=== PATIENT | female | born 1960 | race Caucasian/White ===

== ENCOUNTER 2021-11-05 10:35 | Day surgery (SDC) | payer BC ==
[2021-10-30 12:19] VITALS: BMI 25.7
--- NOTE | 2021-11-04 11:24 | HP ---
HISTORY AND PHYSICAL REASON FOR ADMISSION: Surgery scheduled for 11/05/2021 HISTORY OF PRESENT ILLNESS: Juanita Bose is a 61 -year-old patient seen with symptomatic left knee osteoarthritis. After having treatment options discussed, she elected to proceed with left total knee arthroplasty. Consent was obtained. Medical clearance was provided by Dr. Mattson. PAST MEDICAL HISTORY: Hypothyroidism. PAST SURGICAL HISTORY: Carpal tunnel release, hysterectomy, tubal ligation. MEDICATIONS: Synthroid. ALLERGIES: None. SOCIAL HISTORY: Smokes cigarettes. PHYSICAL EXAMINATION: Physical evaluation of the left knee: Range of motion is -2/3-125. She has tenderness along the medial joint line. Crepitus medial patellofemoral compartments with range of motion. Pain with patellofemoral compression. Ligaments stable. Hip rotation without pain. Distal neurovascular exam is intact. RADIOGRAPHS: Left knee radiographs reveal severe osteoarthritic changes. IMPRESSION: 1. Left knee osteoarthritis. 2. Hypothyroidism. PLAN: Left total knee arthroplasty. Surgery is scheduled 11/05/2021. MMODL / IJN: [id number] /
[~2021-11-05 10:35] MED LIST: ACETAMINOPHEN TAB 500 MG TAB PO PRN; DEXAMETHASONE SOD PHOSPHATE 4 MG/ML 1 ML VIAL IV ONE; MELOXICAM 7.5 MG TAB PO PRN; METOCLOPRAMIDE 5 MG/ML 2 ML VIAL IVP PRN; ONDANSETRON 4 MG/2 ML VIAL IVP ONE; TRANEXAMIC ACID 1,000 MG in SODIUM CHLORIDE 0.9% 100 ML IVPB PRN
[2021-11-05] MEDS ORDERED: SCOPOLAMINE 1.5MG/72HR PATCH TRANSDERM ONE ×2 (11:10→15:05)
[2021-11-05] MEDS: LACTATED RINGERS 1,000 ML IV SCH ×2 (11:12→17:42)
[2021-11-05 11:22] LABS: Glucose,Whole Blood 100 mg/dL (75-99)
[2021-11-05] MEDS ORDERED: MIDAZOLAM 2 MG/2 ML VIAL IV ONE (11:34)
[2021-11-05] MEDS ORDERED: ROPIVACAINE 0.2%-NS ON-Q PUMP 1,090 MG, EMPTY PAIN BALL 1 EACH MISCELLANE PRN (12:24)
--- NOTE | 2021-11-05 12:24 | P.ANPRN ---
Procedure Note - Anesthesia - Nerve Block Performed Left Adductor Canal Infusion Time Out Performed: Yes (1133) Date of Procedure: 11/05/21 Procedure Start Time: 11:33 Procedure Stop Time: 11:41 Location of Patient: PreOp Indication: Acute Post-Operative Pain, Dx/Pain Location (Left Knee pain) Specifically requested for management of pain by Dr.: Talat Monique Sedation Type: Sedate with meaningful contact maintained Preparation: Sterile Prep, Sterile Dressing Position: Supine Catheter: Indwelling Needle Types: Pajunk Needle Gauge: 18 Ultrasound used to visualize needle placement: Yes Ultrasound used to observe medication spread: Yes Injectate: 0.5% Ropivacaine (see comment for volume) (15 cc) Blood Aspirated: No Pain Paresthesia on Injection Noted: No Resistance on Injection: Normal Image Stored and Saved: Yes Events: Uneventful and Well Tolerated Left iPack Single Time Out Performed: Yes Date of Procedure: 11/05/21 Location of Patient: PreOp Indication: Acute Post-Operative Pain, Dx/Pain Location (Left Knee pain) Specifically requested for management of pain by Dr.: Talat Monique Sedation Type: Sedate with meaningful contact maintained Preparation: Sterile Prep Position: Right Lateral Catheter: None Needle Types: Pajunk Needle Gauge: 21 Ultrasound used to visualize needle placement: Yes Ultrasound used to observe medication spread: Yes Injectate: 0.5% Ropivacaine (see comment for volume) (15 cc) Blood Aspirated: No Pain Paresthesia on Injection Noted: No Resistance on Injection: Normal Image Stored and Saved: Yes Events: Uneventful and Well Tolerated
[2021-11-05] MEDS ORDERED: ceFAZolin 3,000 MG in SODIUM CHLORIDE 0.9% IRRIGATIO 3,000 ML IRRIGATION ONE (12:53)
[2021-11-05] MEDS ORDERED: LACTATED RINGERS 1,000 ML IV ONE ×2 (13:54→13:57)
[2021-11-05] MEDS ORDERED: HYDROmorphone 0.2 MG/1 ML SYRINGE IVP PRN (13:57)
[2021-11-05] MEDS ORDERED: HYDROmorphone 1 MG/ML 1 ML SYRINGE IVP PRN ×2 (13:57)
[2021-11-05] MEDS ORDERED: ONDANSETRON 4 MG/2 ML VIAL IVP PRN (13:57)
[2021-11-05] MEDS ORDERED: NALOXONE 0.4 MG/ML 1 ML VIAL IV PRN ×2 (13:57→16:23)
[2021-11-05] MEDS ORDERED: HYDROcodone/APAP 5-325MG 1 EACH TAB PO PRN ×2 (13:57)
--- NOTE | 2021-11-05 13:57 | P.OP ---
Date of Procedure: 11/05/21 Preoperative Diagnosis: Left knee osteoarthritis Postoperative Diagnosis: Left knee osteoarthritis Procedure(s) Performed: Left total knee arthroplasty Implants: 1. Depuy attune size 5 narrow left cruciate retaining cemented femur 2. Depuy attune size 5 fixed bearing cemented tibial baseplate 3. Depuy attune size 5 fixed bearing cruciate retaining 5 mm polyethylene tibial insert 4. Depuy attune 35 mm all polyethylene cemented patella Anesthesia: GETA, regional (Adductor canal catheter, Ipack block) Surgeon: Talat Monique Cherry Pitter #1: Ankit Corrigan Estimated Blood Loss (ml): 45 Pathology: other (Bone) Condition: stable Disposition: PACU Indications for Procedure: 61-year-old patient seen with symptomatic left knee osteoarthritis. After having treatment options discussed, she elected to proceed with total knee arthroplasty. Operative Findings: See description of procedure Description of Procedure: Patient was taken to the operative suite after having an adductor canal catheter placed by the department of anesthesia as well as an Ipack Block for postoperative pain management. Patient underwent a general anesthetic by the department of anesthesia. Patient was given preoperative IV intake antibiotics and TXA. A well-padded tourniquet was placed about the left lower extremity. The lower extremity was then prepped and draped in the normal sterile orthopedic fashion. The extremity was elevated, a tourniquet was insufflated to 300. A standard anterior incision was made sharply through skin. Dissection was taken down through the subcutaneous soft tissues down to the extensor mechanism. A medial arthrotomy was performed, patella was everted and knee was flexed. There was advanced osteoarthritis noted. I introduced my distal intramedullary femoral drill. I then introduced the distal femoral cutting jig. Charli BROWN secured the cutting jig with 2 pins. I held retractors in position while Charli BROWN performed the distal femoral resection through the guide area we now removed her distal femoral cutting guide. We now placed our 4-in-1 femoral cutting block and positioned and it was secured with 2 pins by Charli BROWN while I held the block in position. The distal femoral finishing was now completed. A proximal tibial cutting guide was positioned. I held the guide in the appropriate position with both hands well Charli BROWN inserted stabilizing pins into the guide. Proximal tibial cut was made. We now placed a trial femoral component into position, along with an appropriate size tibial tray and insert. We now took the knee through range of motion and had full extension good flexion and good overall soft tissue balance noted. The patella was everted and stabilized with 2 towel clips held by Charli BROWN while I performed a flush with patellar quad tendon utilizing a fresh sawblade. We templated the patella, appropriate drill holes were made. An appropriate trial patella was positioned, knee was taken through full range of motion with the patella tracking very nicely. The trial patella was removed. Drill holes were made through the femoral component. All trial components were removed after marking off the appropriate rotation of the tibia. Retractors were now positioned along the proximal tibia. An appropriate keel punch was made with the appropriate size tibial guide by myself on Charli BROWN assisted by holding retractors. At this point appropriate size implants were chosen and opened. The joint was irrigated copiously with pulse lavage mechanical irrigation. The posterior capsule was infiltrated with local analgesic. The wound was irrigated with pulse lavage mechanical irrigation. We mixed antibiotic methylmethacrylate. We placed the knee into flexion. We placed multiple retractors assisted by Charli BROWN to expose the proximal tibia. Once the methyl methacrylate was ready, the tibial component was cemented into place removing any excess methylmethacrylate form by both myself and Charli BROWN. The femoral component was cemented into place removing the removing any excess methylmethacrylate performed by both myself and Charli BROWN. We then inserted the appropriate size polyethylene tibial insert. We made sure that it was locked into position. We took the knee into full extension, and then back in a flexion making sure we had removed any excess methylmethacrylate. The patellar component was then cemented down and secured with clamp. Excess methylmethacrylate removed. We kept the knee in full extension, patellar clamp in position until methylmethacrylate had hardened. Once it had hardened the patellar clamp was removed. The knee was taken through full range of motion. The patella tracked nicely. There was good soft tissue balancing. The tourniquet was now released. Additional hemostasis was achieved via electrocautery. A second gram of TXA was given. The wound again was irrigated with pulse lavage mechanical irrigation. The superficial soft tissues were infiltrated local analgesic. The extensor mechanism was repaired with Ethibond. We checked the repair with range of motion and it was stable. The subcutaneo us soft tissues were repaired with Vicryl in layers. The skin was approximated with pernio/Dermabond. Sterile dressings were applied followed by loose web roll and Jhony bandage. The patient was transferred to a bed, and taken to recovery in stable and satisfactory condition. Charli BROWN assisted with this complex procedure.
[2021-11-05] MEDS: HYDROmorphone 1 MG/ML 1 ML SYRINGE IVP PRN ×3 (14:18→15:34)
[2021-11-05] MEDS ORDERED: ONDANSETRON 4 MG/2 ML VIAL IVP ONE (14:39)
--- NOTE | 2021-11-05 14:51 | XR ---
EXAMINATION TYPE: XR knee limited LT DATE OF EXAM: 11/05/2021 COMPARISON: NONE TECHNIQUE: Two views submitted HISTORY: Post op FINDINGS: There is a prosthetic knee in near anatomic alignment. There is soft tissue edema and emphysema. Mcfadden rgical rick are noted. IMPRESSION: 1. Postoperative change. Appears in near-anatomic alignment
[2021-11-05] MEDS ORDERED: KETOROLAC 15 MG/ML 1 ML VIAL IVP ONE (15:00)
[2021-11-05] MEDS ORDERED: HYDROmorphone 1 MG/ML 1 ML SYRINGE IVP ONE ×2 (15:34→15:40)
[2021-11-06] MEDS: ACETAMINOPHEN TAB 325 MG TAB PO PRN ×2 (01:37→13:44)
[2021-11-06] MEDS ORDERED: ENOXAPARIN 30 MG/0.3 ML SYRINGE SQ SCH (03:00)
[2021-11-06] MEDS: LACTATED RINGERS 1,000 ML IV SCH ×2 (03:11→08:34)
[2021-11-06 03:31] VITALS: RESP 17
[2021-11-06] MEDS ORDERED: LEVOTHYROXINE 100 MCG TAB PO SCH (06:30)
[2021-11-06 07:10] VITALS: BP 113/64; PULSE 67; TEMP 98.8
[2021-11-06] MEDS ORDERED: MULTIVITAMINS, THERA 1 EACH TAB PO SCH (09:00)
[2021-11-06] MEDS ORDERED: ASCORBIC ACID 500 MG TAB PO SCH (09:00)
[2021-11-06] MEDS ORDERED: CHOLECALCIFEROL 25 MCG (1000 IU) TABLET PO SCH (09:00)
[2021-11-06] MEDS ORDERED: NON FORMULARY DRUG (Omega-3 Fatty Acids/Fish Oil [Fish Oil 1,000 Mg Softgel] 1 EACH Capsul PO SCH (09:00)
[2021-11-06] MEDS ORDERED: NON FORMULARY DRUG (Vitamin B Complex [Vitamin B Complex] 1 EACH Capsule) PO SCH (09:00)
[2021-11-06] MEDS ORDERED: NON FORMULARY DRUG (Lutein [Lutein] 10 MG Tablet) PO SCH (09:00)
--- NOTE | 2021-11-06 09:21 | P.PN ---
Progress Note - Text Progress Note Date: 11/06/21 Postoperative day # 1 status post total knee arthroplasty, on adductor canal perineural catheter placed for postoperative analgesia. Ropivacaine 0.2% 8 mL per hour through ON-Q pump continuous infusion. Pain is well controlled. On visual analog scale 3/10 Patient is taking PRN oral pain medications. Catheter site: Looks Ok. There is no erythema or tenderness. Continue with the current pain management plan and will follow.
[2021-11-06 09:58] LABS: Basophils # (A) 0.02 X 10*3/uL (0.00-0.10); Basophils % (A) 0.2 %; Eosinophils # (A) 0.07 X 10*3/uL (0.04-0.35); Eosinophils % (A) 0.8 %; HCT 32.7 % (37.2-46.3); HGB 10.6 g/dL (12.0-15.0); Immature Grans, Automated 0.4 %; Lymphocytes % (A) 12.1 %; MCH 31.2 pg (27.0-32.0); MCHC 32.4 g/dL (32.0-37.0); MCV 96.2 fL (80.0-97.0); Mean Platelet Volume 11.6 fL (9.5-12.2); Monocytes # (A) 0.73 X 10*3/uL (0.20-1.00); Monocytes % (A) 8.8 %; NRBC Per 100 WBC 0 /100 WBCS (0.0-0.0); Neutrophils % (A) 77.7 %; Platelet Count 192 X 10*3/uL (140-440); RDW 13.1 % (11.5-14.5); WBC 8.25 X 10*3/uL (4.50-10.00)
--- NOTE | 2021-11-06 10:42 | P.DS ---
Providers Date of admission: 11/05/2021 Expected date of discharge: 11/06/21 Attending physician: Taalt Monique Consults: 11/05/21 16:23 Consult Physician Routine Consulting Provider: Zulema Irwin Consult Reason/Comments: Medical management Do you want consulting provider notified?: Yes Primary care physician: Mary Jane Mattson Hospital Course: Date of admission: 11/05/2021 Date of discharge: 11/06/2021 Admission diagnosis: Left knee osteoarthritis Discharge diagnosis: Same Attending physician: Dr. Monique Surgical procedures: Left total knee arthroplasty Brief history: Patient is a 61-year-old female with a history of progressive primary left knee osteoarthritis. At this point patient has failed conservative treatment measures and has opted to proceed with a elective left total knee arthroplasty. Hospital course: Details of patient's surgery can be found in operative report. Patient tolerated the procedure well and was subsequently transported to orthopedic floor. Patient's orthopeidc and medical care was provided daily. Patient had daily laboratory tests performed for evaluation of overall blood counts. Patient had daily physical therapy to include strengthening range of motion as well as education with walker ambulation. Patient was treated with Lovenox for their postoperative DVT prophylaxis during their inpatient stay. Patient was noted to have a relatively uneventful postoperative course. Patient reported satisfactory pain control with oral pain medications by postoperative day 1. Patient showed satisfactory progress with physical therapy. Patient moved steadily through the program and had no difficulty meeting the goals by postoperative day 1. Given patient's otherwise satisfactory course and having met physical therapy goals, plan is to discharge patient home on postoperative day 1. Discharge condition/disposition: Patient will be discharged home in stable condition. Discharge medications: Instructions are given on resumption of patient's normal daily medications per primary care recommendation, in addition patient will be prescribed Tylenol 650 mg; Colace; aspirin 81 mg twice a day 30 days Discharge instructions: 1. Wound care and infection precautions, keep incision dry and covered while showering, no lotions, creams, moisturizers. No soaking, tubs, pools, hottubs. Do not scrub over the incision. 2. Weight-bear as tolerated with walker / cane until follow-up. 3. Ice and elevate when necessary. Do not exceed 20 minutes per hour with ice pack. 4. Utilize compression sleeve until seen at first follow up appointment. 5. Visiting nursing care. 6. Home physical therapy including home CPM. 7. Pain meds and anticoagulants per prescription. 8. Pain medication has potential to cause constipation. Increase oral fluid and fiber intake. Contact primary care provider if you have not had a bowel movement within 48 hours after discharge 9. No anti-inflammatory medication until discussed at first post operative visit, this including Motrin, Aleve, Mobic, Diclofenac. 10. Follow up in office at 2 weeks postop with Charli Corrigan PA-C / Aman Segovia PA-C 11. Follow up with your primary care doctor 7-10 days after discharge. 12. Contact [facility] with any questions, . Keep incision clean, dry, intact. While showering, cover incision with Saran wrap. Follow up in office in 2 weeks Medications: Tylenol 650 mg; Colace; aspirin 81 mg twice a day 30 days Assessment: Left knee osteoarthritis Procedures: Left total knee arthroplasty Patient Condition at Discharge: Good Plan - Discharge Summary Discharge Rx Participant: Yes New Discharge Prescriptions: New Docusate [Colace] 100 mg PO DAILY #30 capsule Aspirin [Adult Low Dose Aspirin EC] 81 mg PO BID #60 tab Acetaminophen Tab [Tylenol] 650 mg PO Q6H #32 tab No Action Ibuprofen [Motrin] 600 mg PO HS PRN PRN Reason: Pain Levothyroxine Sodium [Synthroid] 100 mcg PO DAILY Multivitamins, Thera [Multivitamin (formulary)] 1 tab PO DAILY Ascorbic Acid [Vitamin C] 500 mg PO DAILY Vitamin B Complex 1 each PO DAILY [place]-3 Fatty Acids/Fish Oil [Fish Oil 1,000 mg Softgel] 1 each PO DAILY Cholecalciferol [Vitamin D3 (25 Mcg = 1000 Iu)] 25 mcg PO DAILY Lutein 10 mg PO DAILY Discharge Medication List Ibuprofen [Motrin] 600 mg PO HS PRN 02/05/16 [History] Levothyroxine Sodium [Synthroid] 100 mcg PO DAILY 02/05/16 [History] Ascorbic Acid [Vitamin C] 500 mg PO DAILY 10/30/21 [History] Cholecalciferol [Vitamin D3 (25 Mcg = 1000 Iu)] 25 mcg PO DAILY 10/30/21 [History] Lutein 10 mg PO DAILY 10/30/21 [History] Multivitamins, Thera [Multivitamin (formulary)] 1 tab PO DAILY 10/30/21 [History] [place]-3 Fatty Acids/Fish Oil [Fish Oil 1,000 mg Softgel] 1 each PO DAILY 10/30/21 [History] Vitamin B Complex 1 each PO DAILY 10/30/21 [History] Acetaminophen Tab [Tylenol] 650 mg PO Q6H #32 tab 11/06/21 [Rx] Aspirin [Adult Low Dose Aspirin EC] 81 mg PO BID #60 tab 11/06/21 [Rx] Docusate [Colace] 100 mg PO DAILY #30 capsule 11/06/21 [Rx] Follow up Appointment(s)/Referral(s): [facility] [NON-STAFF] - As Needed (Continuous Passive Motion knee machine and walker) [facility], [NON-STAFF] - 1-2 Days Patient Instructions/Handouts: *[facility] - Anesthesia Discharge Instru ctions, *[facility] - On-Q Pain Pump Discharge Instructions, *[facility] - Scopalamine Patch Instructions, Precautions after Total Joint Replacement Surgery (DC), Joint Replacement Surgery (DC) Activity/Diet/Wound Care/Special Instructions: Discharge instructions: 1. Wound care and infection precautions, keep incision dry and covered while showering, no lotions, creams, moisturizers. No soaking, tubs, pools, hottubs. Do not scrub over the incision. 2. Weight-bear as tolerated with walker / cane until follow-up. 3. Ice and elevate when necessary. Do not exceed 20 minutes per hour with ice pack. 4. Utilize compression sleeve until seen at first follow up appointment. 5. Visiting nursing care. 6. Home physical therapy including home CPM. 7. Pain meds and anticoagulants per prescription. 8. Pain medication has potential to cause constipation. Increase oral fluid and fiber intake. Contact primary care provider if you have not had a bowel movement within 48 hours after discharge 9. No anti-inflammatory medication until discussed at first post operative visit, this including Motrin, Aleve, Mobic, Diclofenac. 10. Follow up in office at 2 weeks postop with Charli Corrigan PA-C / Aman Segovia PA-C 11. Follow up with your primary care doctor 7-10 days after discharge. 12. Contact [facility] with any questions, . Keep incision clean, dry, intact. While showering, cover incision with Saran wrap. Follow up in office in 2 weeks Medications: Tylenol 650 mg; Colace; aspirin 81 mg twice a day 30 days Discharge Disposition: HOME WITH HOME HEALTH SERVICES
--- NOTE | 2021-11-06 13:04 | P.CONS ---
History of Present Illness - Reason for Consult hypothyroidism - History of Present Illness Patient is a pleasant 61-year-old female admitted for Left knee osteoarthritis and the underwent left knee arthroplasty patient pain is well controlled at this time. Patient did not pass gas yet did not move her bowel yet does have bowel sounds. Patient pain is well controlled at this time patient only has a history of hypothyroidism REVIEW OF SYSTEMS: CONSTITUTIONAL: No fever, no malaise, no fatigue. HEENT: No recent visual problems or hearing problems. Denied any sore throat. CARDIOVASCULAR: No chest pain, orthopnea, PND, no palpitations, no syncope. PULMONARY: No shortness of breath, no cough, no hemoptysis. GASTROINTESTINAL: No diarrhea, no nausea, no vomiting, no abdominal pain. NEUROLOGICAL: No headaches, no weakness, no numbness. HEMATOLOGICAL: Denies any bleeding or petechiae. GENITOURINARY: Denies any burning micturition, frequency, or urgency. MUSCULOSKELETAL/RHEUMATOLOGICAL: Denies any joint pain, swelling, or any muscle pain. ENDOCRINE: Denies any polyuria or polydipsia. The rest of the 14-point review of systems is negative. PHYSICAL EXAMINATION: GENERAL: The patient is alert and oriented x3, not in any acute distress. Well developed, well nourished. HEENT: Pupils are round and equally reacting to light. EOMI. No scleral icterus. No conjunctival pallor. Normocephalic, atraumatic. No pharyngeal erythema. No thyromegaly. CARDIOVASCULAR: S1 and S2 present. No murmurs, rubs, or gallops. PULMONARY: Chest is clear to auscultation, no wheezing or crackles. ABDOMEN: Soft, nontender, nondistended, normoactive bowel sounds. No palpable organomegaly. MUSCULOSKELETAL: Deferred to orthopedic surgery EXTREMITIES: No cyanosis, clubbing, or pedal edema. NEUROLOGICAL: Gross neurological examination did not reveal any focal deficits. SKIN: No rashes. Assessment and plan -Thyroidism: continue with levothyroxine, no TSH during this hospitalization -Osteoarthritis multi-joint underwent surgery for left knee DVT prophylaxis and pain management as per primary service advise patient to use [id number]-wxefunk MiraLAX and senna for constipation from opiates for pain. Past Medical History Past Medical History: Osteoarthritis (OA), Thyroid Disorder Additional Past Medical History / Comment(s): HASHIMOTOS, HX OF ANEMIA. History of Any Multi-Drug Resistant Organisms: None Reported Past Surgical History: Hysterectomy, Orthopedic Surgery, Uterine Ablation Additional Past Surgical History / Comment(s): TRAMAINE CARPAL TUNNEL,SPURS LEFT FOOT, RIGHT ROTATOR CUFF REPAIR, LEFT KNEE ARTHROSCOPY X2. Past Anesthesia/Blood Transfusion Reactions: Motion Sickness, Postoperative Nausea & Vomiting (PONV) Past Psychological History: No Psychological Hx Reported Smoking Status: Former smoker Past Alcohol Use History: Occasional Additional Past Alcohol Use History / Comment(s): SMOKED 1PPD, QUIT 3 YEARS AGO. , SMOKED FOR APPROX 35 YEARS. Past Drug Use History: None Reported - Past Family History Mother Family Medical History: Cancer Medications and Allergies Home Medications Medication Instructions Recorded Confirmed Type Ibuprofen [Motrin] 600 mg PO HS PRN 02/05/16 11/05/21 History Levothyroxine Sodium [Synthroid] 100 mcg PO DAILY 02/05/16 11/05/21 History Ascorbic Acid [Vitamin C] 500 mg PO DAILY 10/30/21 11/05/21 History Cholecalciferol [Vitamin D3 (25 25 mcg PO DAILY 10/30/21 11/05/21 History Mcg = 1000 Iu)] Lutein 10 mg PO DAILY 10/30/21 11/05/21 History Multivitamins, Thera [Multivitamin 1 tab PO DAILY 10/30/21 11/05/21 History (formulary)] [place]-3 Fatty Acids/Fish Oil [Fish 1 each PO DAILY 10/30/21 11/05/21 History Oil 1,000 mg Softgel] Vitamin B Complex 1 each PO DAILY 10/30/21 11/05/21 History Acetaminophen Tab [Tylenol] 650 mg PO Q6H #32 tab 11/06/21 Rx Aspirin [Adult Low Dose Aspirin EC] 81 mg PO BID #60 tab 11/06/21 Rx Docusate [Colace] 100 mg PO DAILY #30 capsule 11/06/21 Rx Allergies Allergy/AdvReac Type Severity Reaction Status Date / Time adhesive Allergy Unknown BLISTERS Verified 11/05/21 11:00 coconut oil Allergy Unknown Rash/Hives Verified 11/05/21 11:00 Physical Exam Vitals: Vital Signs Temp Pulse Resp BP Pulse Ox 11/06/21 07:10 98.8 F 67 17 113/64 96 11/06/21 02:00 98.1 F 86 17 111/70 96 11/05/21 19:50 98.7 F 66 18 121/73 99 11/05/21 17:02 56 L 16 128/75 100 11/05/21 16:32 61 16 113/67 99 11/05/21 16:12 54 L 16 121/56 100 11/05/21 15:58 55 L 16 122/58 98 11/05/21 15:43 49 L 16 120/61 88 L 11/05/21 15:28 46 L 16 129/63 96 11/05/21 15:13 48 L 16 155/64 95 11/05/21 14:57 51 L 16 134/64 94 L 11/05/21 14:42 60 16 156/67 99 11/05/21 14:27 68 16 141/67 95 11/05/21 14:12 96.9 F L 89 15 136/78 95 Intake and Output 11/05/21 11/06/21 11/06/21 22:59 06:59 14:59 Other: # Voids 0 1 Weight 72.121 kg Results CBC & Chem 7: 11/06/21 05:57 Labs: Abnormal Lab Results - Last 24 Hours (Table) 11/06/21 Range/Units 05:57 RBC 3.40 L (4.10-5.20) X 10*6/uL Hgb 10.6 L (12.0-15.0) g/dL Hct 32.7 L (37.2-46.3) %
--- NOTE | 2021-11-06 13:59 | P.PN ---
Subjective Progress Note Date: 11/06/21 Principal diagnosis: Left knee osteoarthritis Left knee osteoarthritis Patient was seen at bedside this morning resting sitting in chair with legs elevated icing knee. Patient states that most the pain is at the front of her knee. Patient states she did get up with physical therapy this morning and it went well and she walked down the moeller. Patient says she has not had bowel movement yet, however, patient says she has been passing gas. Patient says she has been using incentive spirometer. Patient denies chest pain, fever, shortness breath, nausea,, change in vision, loss of bowel/bladder control. Objective - Vital Signs Vital signs: Vital Signs Temp 98.8 F 11/06/21 07:10 Pulse 67 11/06/21 07:10 Resp 17 11/06/21 07:10 BP 113/64 11/06/21 07:10 Pulse Ox 96 11/06/21 07:10 Intake & Output 11/05/21 11/06/21 11/06/21 18:59 06:59 18:59 Intake Total 1950 Output Total 45 Balance 1905 Weight 72.121 kg Intake: IV 1950 Output: Estimated Blood Loss 45 Other: # Voids 0 1 - Exam Left knee: Incision is clean, dry, and intact. The silver foam dressing is in good condition. There is minimal soft tissue swelling and ecchymosis surrounding the medial and lateral aspects of the incision. Calf is soft, no tenderness with palpation. Plantar flexion, dorsiflexion, EHL, FHL are intact. Sensory exam to light touch throughout the extremity is intact, dorsal pedis pulses 2+. - Labs CBC & Chem 7: 11/06/21 05:57 Labs: Abnormal Lab Results - Last 24 Hours (Table) 11/05/21 11/06/21 Range/Units 11:12 05:57 RBC 3.40 L (4.10-5.20) X 10*6/uL Hgb 10.6 L (12.0-15.0) g/dL Hct 32.7 L (37.2-46.3) % POC Glucose (mg/dL) 100 H (75-99) mg/dL Assessment and Plan Assessment: Left knee osteoarthritis Postoperative day 1 status post left total knee arthroplasty Plan: 1. Left knee osteoarthritis - left total knee arthroplasty performed yesterday, Friday, to 11/05/2021. Patient stable at bedside this morning. Plan discharge home with health services today 2. Appreciate medical management 3. Pain management - going home with Tylenol 650 mg 4. GI prophylaxis - going home with Colace 5. DVT prophylaxis - aspirin 81 mg twice a day 30 days 6. PT/OT - weightbearing as tolerated with walker 7. Encourage incentive spirometer use 8. Discharge planning - discharge home today with health services Time with Patient: Less than 30
== END 2021-11-06 14:10 | disposition home health service (06) ==
LOC: OR 10:35 → 4SSUR 14:12 → OR 11-06 14:10
PROVIDERS: ATTEND Orthopaedic Surgery
DX: M17.12 Unilateral primary osteoarthritis, left knee (principal); Z20.822 Contact with and (suspected) exposure to COVID-19; F17.210 Nicotine dependence, cigarettes, uncomplicated; E03.9 Hypothyroidism, unspecified
CPT/HCPCS: 27447; 97161; 64999; 64448; 76942; 85025; 87635; 73560; C1776; C1713 ×2; J2250; J1100; J0690 ×3; J2405 ×2; J1650; J1170; J1885; J2795; 88300

== ENCOUNTER 2022-01-28 08:31 | Day surgery (SDC) | payer BC ==
[2022-01-24 14:41] VITALS: BMI 25.0
--- NOTE | 2022-01-27 12:19 | HP ---
HISTORY AND PHYSICAL DATE OF SURGERY: 01/28/2022 Juanita Bose is a 61-year-old patient seen with left knee adhesions with history of previous total knee arthroplasty. We discussed options. She elected to proceed with manipulation under anesthesia of the left knee. Consent was obtained. PAST MEDICAL HISTORY: Hypothyroidism. PAST SURGICAL HISTORY: Carpal tunnel release, knee arthroscopy, hysterectomy, left total knee arthroplasty. DAILY MEDICATIONS: Synthroid, Advil. ALLERGIES: NONE. SOCIAL HISTORY: She smokes cigarettes. PHYSICAL EVALUATION OF LEFT KNEE: Her anterior incision is well healed. Her range of motion is negative 4/5 to 100. She has reasonable strength. Her distal neurovascular exam is intact. Radiographs of the left knee reveal a stable-appearing total knee arthroplasty. IMPRESSION: 1. Left knee adhesions. 2. History of left total knee arthroplasty. 3. Hypothyroidism. PLAN: Manipulation under anesthesia of left knee. MMCAROLYNL / JACKIEN: [id number] /
[~2022-01-28 08:31] MED LIST changes: -ACETAMINOPHEN TAB 500 MG TAB PO PRN; +HYDROmorphone 0.5 MG/0.5 ML SYRINGE IVP PRN; +LACTATED RINGERS 1,000 ML IV SCH; +LIDOCAINE 1% (10MG/ML) FOR IV START INTRADERMA PRN; -MELOXICAM 7.5 MG TAB PO PRN; -METOCLOPRAMIDE 5 MG/ML 2 ML VIAL IVP PRN; +MIDAZOLAM 2 MG/2 ML VIAL IV PRN; -TRANEXAMIC ACID 1,000 MG in SODIUM CHLORIDE 0.9% 100 ML IVPB PRN
[2022-01-28 08:56] VITALS: TEMP 97.2
[2022-01-28] MEDS ORDERED: MIDAZOLAM 2 MG/2 ML VIAL ONE (09:48)
[2022-01-28] MEDS ORDERED: ONDANSETRON 4 MG/2 ML VIAL ONE (09:48)
[2022-01-28] MEDS ORDERED: fentaNYL (PF) 50 MCG/ML 2 ML AMP ONE (09:48)
[2022-01-28] MEDS ORDERED: KETOROLAC 15 MG/ML 1 ML VIAL ONE (09:48)
[2022-01-28] MEDS ORDERED: PROPOFOL 10 MG/ML 20 ML VIAL IV ONE (09:48)
--- NOTE | 2022-01-28 10:01 | P.OP ---
Date of Procedure: 01/28/22 Preoperative Diagnosis: Left knee adhesions Postoperative Diagnosis: Left knee adhesions Procedure(s) Performed: Manipulation under anesthesia left knee Anesthesia: MAC Surgeon: Talat Monique Estimated Blood Loss (ml): 0 Pathology: none sent Condition: stable Disposition: PACU Indications for Procedure: 61-year-old patient seen with persistent left knee adhesions history previous total knee arthroplasty. We discussed manipulation under anesthesia left knee, patient was agreeable and consent was obtained. Operative Findings: See description of procedure Description of Procedure: The patient was taken to a monitored anesthesia area. She received IV sedation by the department of anesthesia. Once adequate anesthesia was noted I performed a manipulation of the left knee achieving full extension and 145 of flexion with audible tearing of the adhesions. I again took the knee through full range of motion. The knee appeared stable. The patient was awakened having tolerated procedure well.
[2022-01-28] MEDS ORDERED: HYDROmorphone 0.5 MG/0.5 ML SYRINGE IVP ONE (10:16)
[2022-01-28 11:16] VITALS: RESP 18
[2022-01-28 11:35] VITALS: BP 133/63; PULSE 58
== END 2022-01-28 11:32 | disposition home or self-care (01) ==
LOC: OR 08:31
PROVIDERS: ATTEND Orthopaedic Surgery
DX: M23.8X2 Other internal derangements of left knee (principal); F17.210 Nicotine dependence, cigarettes, uncomplicated; E03.9 Hypothyroidism, unspecified; Z96.653 Presence of artificial knee joint, bilateral
CPT/HCPCS: 27570; J2250; J1100; J2405; J3010; J1885; J2704; J1170

== ENCOUNTER → 2022-05-27 | Outpatient (CLI) | payer BC ==
[2022-05-27 15:39] LABS: Basophils # (A) 0.04 X 10*3/uL (0.00-0.10); Basophils % (A) 0.7 %; Eosinophils # (A) 0.41 X 10*3/uL (0.04-0.35); Eosinophils % (A) 7.2 %; HCT 38.6 % (37.2-46.3); HGB 12.6 g/dL (12.0-15.0); Immature Grans, Automated 0.4 %; Lymphocytes # (A) 1.63 X 10*3/uL (0.90-5.00); Lymphocytes % (A) 28.6 %; MCH 31.2 pg (27.0-32.0); MCHC 32.6 g/dL (32.0-37.0); MCV 95.5 fL (80.0-97.0); Mean Platelet Volume 11.1 fL (9.5-12.2); Monocytes # (A) 0.44 X 10*3/uL (0.20-1.00); Monocytes % (A) 7.7 %; NRBC Per 100 WBC 0 /100 WBCS (0.0-0.0); Neutrophils # (A) 3.16 X 10*3/uL (1.80-7.70); Neutrophils % (A) 55.4 %; Platelet Count 251 X 10*3/uL (140-440); RBC 4.04 X 10*6/uL (4.10-5.20); RDW 12.8 % (11.5-14.5)
[2022-05-27 17:01] LABS: African American GFR (CKD) 82.3 (60.0-200.0); Albumin 4.6 g/dL (3.8-4.9); Albumin/Globulin Ratio 1.99 (1.60-3.17); BUN/Creat Ratio 31.24 Ratio (12.00-20.00); Blood Urea Nitrogen 27.3 mg/dL (9.0-27.0); Calcium 10.2 mg/dL (8.7-10.3); Globulin 2.3 g/dL (1.6-3.3); HDL Cholesterol 67.3 mg/dL (40.00-60.00); Potassium 5.1 mmol/L (3.5-5.5); Total Bilirubin 0.3 mg/dL (0.30-1.20); Triglycerides 48.1 mg/dL (0.00-149.00)
[2022-05-27 17:26] LABS: Chol/HDL Ratio 2.96 Ratio
== END | disposition home or self-care (01) ==
LOC: LABWHC1 10:20
PROVIDERS: ATTEND Internal Medicine
DX: Z13.220 Encounter for screening for lipoid disorders (principal); Z13.228 Encounter for screening for other metabolic disorders; E03.9 Hypothyroidism, unspecified
CPT/HCPCS: 36415; 80053; 80061; 83721; 84443; 85025

== ENCOUNTER → 2022-08-27 | Outpatient (CLI) | payer BC ==
--- NOTE | 2022-08-28 08:06 | MR ---
EXAMINATION TYPE: MR shoulder LT wo con DATE OF EXAM: 08/27/2022 COMPARISON: Outside left shoulder x-ray August 07, 2022. HISTORY: Left shoulder pain for 6 months with difficulty raising arm overhead TECHNIQUE: Multiplanar, multisequence imaging of the left shoulder is performed without contrast. FINDINGS: Rotator Cuff: Increased signal and thickening in the supraspinatus tendon with increased signal exte nding into the distal supraspinatus muscle bulk. Infraspinatus tendon intact. Rotator cuff muscle bul k preserved. Acromioclavicular Joint: Mild narrowing with [id number] capsular hypertrophy and mild/moderat e subchondral cystic change. Underlying fat plane appears maintained however at this level. Glenohumeral Joint: Small to moderate-sized joint effusion extending anteriorly. No significant spurr ing. Labrum: The labrum appears grossly intact given limitation of non-arthrogram study. Biceps Tendon: The long head of biceps is in normal location within bicipital groove. Increased signa l in the distal biceps tendon centrally right before the anchor noted sagittal images 13 through 18. Bone marrow signal: Tiny subchondral cystic change involving the humeral head. Other: No additional significant abnormality is appreciated. IMPRESSION: 1. Tendinosis/partial tearing of the intra-articular portion of the long head of biceps tendon right before labral anchor. 2. Tendinopathy of the supraspinatus without discrete tear. 3. Degenerative changes as detailed above.
== END | disposition home or self-care (01) ==
LOC: RADMRIMAIN 16:57
PROVIDERS: ATTEND Orthopaedic Surgery
DX: M19.012 Primary osteoarthritis, left shoulder (principal); M67.813 Other specified disorders of tendon, right shoulder

== ENCOUNTER → 2022-10-28 | Outpatient (CLI) | payer BC ==
[2022-10-28 15:12] LABS: Basophils # (A) 0.04 X 10*3/uL (0.00-0.10); Basophils % (A) 0.7 %; Eosinophils # (A) 0.24 X 10*3/uL (0.04-0.35); Eosinophils % (A) 4.5 %; HGB 12.7 g/dL (12.0-15.0); Immature Grans, Automated 0.4 %; Lymphocytes # (A) 1.48 X 10*3/uL (0.90-5.00); Lymphocytes % (A) 27.6 %; MCH 30.8 pg (27.0-32.0); MCHC 31.8 g/dL (32.0-37.0); MCV 96.9 fL (80.0-97.0); Mean Platelet Volume 10.9 fL (9.5-12.2); Monocytes # (A) 0.34 X 10*3/uL (0.20-1.00); Monocytes % (A) 6.3 %; NRBC Per 100 WBC 0 /100 WBCS (0.0-0.0); Neutrophils # (A) 3.24 X 10*3/uL (1.80-7.70); Neutrophils % (A) 60.5 %; Platelet Count 243 X 10*3/uL (140-440); RBC 4.13 X 10*6/uL (4.10-5.20); RDW 12.9 % (11.5-14.5); WBC 5.36 X 10*3/uL (4.50-10.00)
[2022-10-28 15:35] LABS: Anion Gap 7.2 mmol/L (10.00-18.00); Carbon Dioxide 28.6 mmol/L (20.0-27.5); Potassium 5.2 mmol/L (3.5-5.5)
== END | disposition home or self-care (01) ==
LOC: LABPAT 10:09
PROVIDERS: ATTEND Orthopaedic Surgery
DX: Z01.818 Encounter for other preprocedural examination (principal); M75.42 Impingement syndrome of left shoulder; R00.1 Bradycardia, unspecified
CPT/HCPCS: 80051; 85025; 93005

== ENCOUNTER → 2023-07-11 | Outpatient (CLI) | payer BC ==
--- NOTE | 2023-07-13 07:59 | MR ---
EXAMINATION TYPE: MR knee RT wo con DATE OF EXAM: 07/11/2023 COMPARISON: Outside right knee x-ray July 01, 2023 HISTORY: Rt knee medial pain with locking and swelling for 3 months. History of prior surgery. TECHNIQUE: Multiplanar, multisequence images of the knee is performed without IV contrast. FINDINGS: MEDIAL MENISCUS: Fraying of the posterior horn with abnormal signal including vertical oriented signa l extending to articular surface. LATERAL MENISCUS: Anterior and posterior horns are intact without tear. CRUCIATE LIGAMENTS: The anterior and posterior cruciate ligaments are intact and unremarkable. COLLATERAL LIGAMENTS: The medial collateral ligament and lateral collateral ligament complex are inta ct. Some fluid signal surrounds the medial collateral ligament. EXTENSOR MECHANISM: Visualized quadriceps and patellar tendons are intact. EFFUSION: Moderate-size suprapatellar joint effusion. POPLITEAL CYST: No popliteal/barkley cyst. TRICOMPARTMENT SPACES: Mild to moderate narrowing with mild spurring patellofemoral compartment. Mild spurring and narrowing medial tibiofemoral compartment. 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 BONE MARROW SIGNAL: No focal abnormal marrow signal is appreciated. OTHER: No additional significant abnormality is appreciated. IMPRESSION: 1. Complex full-thickness tear posterior horn of medial meniscus. 2. Moderate-size suprapatellar joint effusion. 3. Mild MCL sprain injury. 4. Tricompartment degenerative changes that are most prominent and mild to moderate involving patello femoral compartment as detailed above.
== END | disposition home or self-care (01) ==
LOC: RADMRIMAIN 19:04
PROVIDERS: ATTEND Orthopaedic Surgery
DX: M17.11 Unilateral primary osteoarthritis, right knee (principal); M23.321 Other meniscus derangements, posterior horn of medial meniscus, right knee; M23.631 Other spontaneous disruption of medial collateral ligament of right knee; M25.461 Effusion, right knee

== ENCOUNTER → 2023-08-06 | Outpatient (CLI) | payer BC ==
[2023-08-06 17:01] LABS: Anion Gap 10.3 mmol/L (4.00-12.00); Carbon Dioxide 27.7 mmol/L (21.6-31.8); Potassium 4.4 mmol/L (3.5-5.5)
[2023-08-06 17:12] LABS: Basophils # (A) 0.03 X 10*3/uL (0.00-0.10); Basophils % (A) 0.7 %; Eosinophils # (A) 0.22 X 10*3/uL (0.04-0.35); Eosinophils % (A) 4.8 %; HCT 37.5 % (37.2-46.3); HGB 12.4 g/dL (12.0-15.0); Lymphocytes # (A) 1.49 X 10*3/uL (0.90-5.00); Lymphocytes % (A) 32.5 %; MCH 31.7 pg (27.0-32.0); MCHC 33.1 g/dL (32.0-37.0); MCV 95.9 FL (80.0-97.0); Mean Platelet Volume 11.3 FL (9.5-12.2); Monocytes # (A) 0.42 X 10*3/uL (0.20-1.00); Monocytes % (A) 9.2 %; NRBC Per 100 WBC 0 X 10*3/uL (0.00-0.01); Neutrophils # (A) 2.41 X 10*3/uL (1.80-7.70); Neutrophils % (A) 52.6 %; Platelet Count 233 X 10*3/uL (140-440); RBC 3.91 X 10*6/uL (4.10-5.20); RDW 12.9 % (11.5-14.5); WBC 4.58 X 10*3/uL (4.50-10.00)
== END | disposition home or self-care (01) ==
LOC: LABWHC1 09:27
PROVIDERS: ATTEND Orthopaedic Surgery
DX: Z01.812 Encounter for preprocedural laboratory examination (principal); M23.91 Unspecified internal derangement of right knee; R94.31 Abnormal electrocardiogram [ECG] [EKG]
CPT/HCPCS: 36415; 80051; 85025; 93005

== ENCOUNTER 2023-08-28 14:42 | Day surgery (SDC) | payer BC ==
[2023-08-22 11:28] VITALS: BMI 23.6
--- NOTE | 2023-08-28 00:49 | HP ---
HISTORY AND PHYSICAL DATE OF SURGERY: 08/28/2023. HISTORY OF PRESENT ILLNESS: Juanita Bose is a 63-year-old patient, seen with progressive right knee pain. Options for treatment were discussed. She elected to proceed with right knee arthroscopy. Consent was obtained. PAST MEDICAL HISTORY: Hypothyroidism. PAST SURGICAL HISTORY: Left knee arthroscopy, left total knee arthroplasty, bilateral carpal tunnel release, hysterectomy, tubal ligation. DAILY MEDICATIONS: 1. Synthroid. 2. Ibuprofen. ALLERGIES: None. SOCIAL HISTORY: She denies tobacco use. PHYSICAL EVALUATION OF THE RIGHT KNEE: Range of motion 0 to 125 degrees. Mild effusion. Tenderness, medial joint line. Positive medial Tavia's. Her ligaments are stable. Hip rotation is without pain. Distal neurovascular exam is intact. RADIOGRAPHS: Radiographs of right knee revealed mild osteoarthritis. MRI of right knee revealed medial meniscal tear and intra-articular effusion. IMPRESSION: 1. Internal derangement of right knee with medial meniscal tear. 2. Hypothyroidism. PLAN: Right knee arthroscopy with partial medial meniscectomy and debridement. MMODL / IJN: [id number] /
[~2023-08-28 14:42] MED LIST changes: -LIDOCAINE 1% (10MG/ML) FOR IV START INTRADERMA PRN; -MIDAZOLAM 2 MG/2 ML VIAL IV PRN
[2023-08-28] MEDS ORDERED: SCOPOLAMINE 1 MG/72 HR PATCH TRANSDERM ONE (15:31)
[2023-08-28] MEDS ORDERED: BUPIVACAINE (PF) 0.25% 30 ML VIAL INTRAARTIC ONE ×2 (16:06→17:12)
[2023-08-28] MEDS ORDERED: ePHEDrine 50 MG/ML 1 ML VIAL ONE (16:31)
[2023-08-28] MEDS ORDERED: KETOROLAC 15 MG/ML 1 ML VIAL ONE (16:31)
[2023-08-28] MEDS ORDERED: LIDOCAINE 1% INJ 10MG/ML (20 ML MDV) ONE (16:31)
[2023-08-28] MEDS ORDERED: fentaNYL (PF) 50 MCG/ML 2 ML AMP ONE (16:31)
[2023-08-28] MEDS ORDERED: MIDAZOLAM 2 MG/2 ML VIAL ONE (16:31)
[2023-08-28] MEDS ORDERED: PROPOFOL 10 MG/ML 20 ML VIAL IV ONE (16:31)
[2023-08-28] MEDS ORDERED: SODIUM CHLORIDE 0.9% 50 ML with ceFAZolin 2,000 MG IV ONE ×2 (16:36)
--- NOTE | 2023-08-28 17:26 | P.OP ---
Date of Procedure: 08/28/23 Preoperative Diagnosis: Internal derangement right knee Postoperative Diagnosis: 1. Tear medial and lateral meniscus right knee 2. Reactive synovitis medial, lateral and suprapatellar compartments right knee Procedure(s) Performed: 1. Arthroscopic partial medial and lateral meniscectomy right knee 2. Arthroscopic partial synovectomy medial, lateral and suprapatellar compartments right knee Anesthesia: HOSSEINA, local Surgeon: Talat Monique Estimated Blood Loss (ml): 7 Pathology: none sent Condition: stable Disposition: PACU Indications for Procedure: 63-year-old patient who was seen with progressive right knee pain. After having treatment options discussed, she elected to proceed with arthroscopy. Operative Findings: See description of procedure Description of Procedure: Patient was taken to the operative suite. Patient underwent a general anesthetic by the department of anesthesia. Patient was given preoperative antibiotics. The right lower extremity was placed in a well-padded arthroscopic leg west. The right leg was prepped and draped in the normal sterile orthopedic fashion. A lateral parapatellar and suprapatellar incision was made. Trochars were inserted. Arthroscopy was initiated. Suprapatellar pouch revealed diffuse thick reactive synovitis. The patellofemoral joint appeared to articulate congruently. There was early grade 1 chondromalacia without significant tears. The scope was guided into the medial gutter. No loose bodies or plica were identified. The scope was then guided into the medial compartment. A medial parapatellar incision was made. Trocar inserted followed by probe. There was a complex tear involving the posterior horn medial meniscus. There were grade 1 chondromalacia changes medial femoral condyle without tears. There was thick reactive synovitis anteriorly. I performed a partial medial meniscectomy getting down to stable meniscal tissue. I performed a partial synovectomy decompressing the reactive synovitis. The residual meniscus was probed and was found to be stable. There was good decompression of the synovitis. Scope and probe were then guided into the intercondylar notch. Cruciates were identified, probed and found to be stable. The scope and probe were then guided into lateral compartment. There was a radial tear involving midbody lateral meniscus. There were grade 1 chondromalacia changes lateral compartment. There was thick reactive synovitis anteriorly. I performed a partial lateral meniscectomy getting down to stable meniscal tissue. I performed a partial synovectomy decompressing the reactive synovitis. The residual meniscus was stable. There was good decompression of the synovitis. The scope was in guided back into the suprapatellar compartment. I introduced a motorized shaver into the suprapatellar compartment. I debrided some piecemeal fragments of meniscus I encountered. I performed a partial synovectomy. The shaver was now removed. There was good decompression of the synovitis. I took one more look around the entire knee, no residual debris. Instruments were now removed from the joint. The joint was infiltrated with .25% Marcaine. Steri- Strips were applied to the portal sites. Sterile dressings were applied. The patient was placed into a SOCORRO hose. No tourniquet was utilized. The patient was awakened, transferred to a bed and taken to recovery stable satisfactory condition.
[2023-08-28 17:32] VITALS: TEMP 97.1
[2023-08-28 17:52] VITALS: RESP 16
[2023-08-28 18:33] VITALS: BP 127/73; PULSE 76
== END 2023-08-28 18:41 | disposition home or self-care (01) ==
LOC: OR 14:42
PROVIDERS: ATTEND Orthopaedic Surgery
DX: S83.281A Other tear of lateral meniscus, current injury, right knee, initial encounter (principal); M65.161 Other infective (teno)synovitis, right knee; M23.91 Unspecified internal derangement of right knee; E03.9 Hypothyroidism, unspecified; Z79.890 Hormone replacement therapy; Z79.899 Other long term (current) drug therapy; Z91.018 Allergy to other foods; Z91.048 Other nonmedicinal substance allergy status; X58.XXXA Exposure to other specified factors, initial encounter
CPT/HCPCS: 29880; J2250; J1100; J2405; J0690; J2001; J3010; J1885; J2704; J1170; J0665

== ENCOUNTER → 2024-06-23 | Outpatient (CLI) | payer MEDICARE ==
[2024-06-23 15:15] LABS: Basophils # (A) 0.06 X 10*3/uL (0.00-0.10); Basophils % (A) 1.2 %; Eosinophils # (A) 0.28 X 10*3/uL (0.04-0.35); Eosinophils % (A) 5.4 %; HGB 13.7 g/dL (12.0-15.0); Lymphocytes # (A) 2.01 X 10*3/uL (0.90-5.00); MCH 31.1 pg (27.0-32.0); MCHC 32.6 g/dL (32.0-37.0); MCV 95.5 FL (80.0-97.0); Mean Platelet Volume 10.5 FL (9.5-12.2); Monocytes # (A) 0.47 X 10*3/uL (0.20-1.00); Monocytes % (A) 9.1 %; NRBC Per 100 WBC 0 X 10*3/uL (0.00-0.01); Neutrophils # (A) 2.33 X 10*3/uL (1.80-7.70); Neutrophils % (A) 45.1 %; Platelet Count 251 X 10*3/uL (140-440); RDW 12.3 % (11.5-14.5); WBC 5.16 X 10*3/uL (4.50-10.00)
[2024-06-23 15:29] LABS: ALT 22 U/L (8-44); AST 22 U/L (13-35); Albumin 4.9 g/dL (3.8-4.9); Albumin/Globulin Ratio 1.88 Ratio (1.60-3.17); Alkaline Phosphatase 103 U/L (41-126); Blood Urea Nitrogen 22.5 mg/dL (9.0-27.0); Calcium 10.7 mg/dL (8.7-10.3); Carbon Dioxide 27.4 mmol/L (21.6-31.8); Chloride 100 mmol/L (96-109); Globulin 2.6 g/dL (1.6-3.3); Glucose 105 mg/dL (70-110); Potassium 4.3 mmol/L (3.5-5.5); Sodium 138 mmol/L (135-145); Total Bilirubin 0.5 mg/dL (0.3-1.2); Total Protein 7.5 g/dL (6.2-8.2); VLDL Calculation 16.32 mg/dL (5.00-40.00)
== END | disposition home or self-care (01) ==
LOC: LABWHC1 08:20
PROVIDERS: ATTEND Internal Medicine
DX: Z00.01 Encounter for general adult medical examination with abnormal findings (principal); Z13.220 Encounter for screening for lipoid disorders; E03.9 Hypothyroidism, unspecified; E56.0 Deficiency of vitamin E
CPT/HCPCS: 36415; 80053; 80061; 82306; 84443; 85025

== ENCOUNTER → 2024-07-05 | Outpatient (CLI) | payer MEDICARE | END | disposition home or self-care (01) | LOC: LABWHC1 12:54 | PROVIDERS: ATTEND Internal Medicine | DX: E83.52 Hypercalcemia (principal) | CPT/HCPCS: 36415; 82330; 83970 ==

== ENCOUNTER 2025-02-14 10:41 | Day surgery (SDC) | payer MEDICARE ==
--- NOTE | 2025-02-13 13:00 | HP ---
HISTORY AND PHYSICAL HISTORY OF PRESENT ILLNESS: Juanita Bose, a 64-year-old patient seen with persistent left knee adhesions/adhesive capsulitis, failing conservative treatment measures. After having treatment options discussed, she elected to proceed with manipulation under anesthesia of left knee. Consent was obtained. PAST MEDICAL HISTORY: Hypothyroidism. PAST SURGICAL HISTORY: Left knee arthroscopy, left total knee arthroplasty, carpal tunnel surgery, hysterectomy, and tubal ligation daily. DAILY MEDICATIONS: Synthroid and ibuprofen. ALLERGIES: None. SOCIAL HISTORY: She smokes cigarettes. PHYSICAL EXAMINATION: Evaluation of her left knee, she has a well-healed anterior incision. Range of motion is 0 to 100 degrees. Ligaments stable. Hip rotation without pain. Distal neurovascular exam intact. DIAGNOSTIC STUDIES: Left knee radiographs revealed a stable appearing total knee arthroplasty. IMPRESSION: 1. Left knee adhesions. 2. History of left total knee arthroplasty. PLAN: Manipulation under anesthesia of left knee. MMODL / IJN: [id number] /
[~2025-02-14 10:41] MED LIST changes: -DEXAMETHASONE SOD PHOSPHATE 4 MG/ML 1 ML VIAL IV ONE; -LACTATED RINGERS 1,000 ML IV SCH; +LIDOCAINE 1% (10MG/ML) FOR IV START INTRADERMA PRN; -ONDANSETRON 4 MG/2 ML VIAL IVP ONE; +ceFAZolin 2 GM in DEXTROSE 5% IN WATER 50 ML IVPB PRN
[2025-02-14] MEDS: IV FLUID CONTINUATION 1,000 ML IV ONE (11:05)
[2025-02-14 11:13] VITALS: RESP 16; TEMP 97.6
[2025-02-14] MEDS: LACTATED RINGERS 1,000 ML IV SCH (11:17)
[2025-02-14] MEDS: DEXAMETHASONE SOD PHOSPHATE 4 MG/ML 1 ML VIAL IV ONE (11:20)
[2025-02-14] MEDS: ONDANSETRON 4 MG/2 ML VIAL IVP ONE (11:20)
[2025-02-14] MEDS ORDERED: LIDOCAINE 1% INJ 10MG/ML (20 ML MDV) ONE (12:15)
[2025-02-14] MEDS ORDERED: PROPOFOL 10 MG/ML 20 ML VIAL IV ONE (12:15)
[2025-02-14] MEDS ORDERED: KETOROLAC 15 MG/ML 1 ML VIAL ONE (12:15)
--- NOTE | 2025-02-14 12:24 | P.OP ---
Date of Procedure: 02/14/25 Preoperative Diagnosis: Left knee adhesions noted Postoperative Diagnosis: Left knee adhesions Procedure(s) Performed: Manipulation under anesthesia left knee Anesthesia: MAC Surgeon: Talat Monique Estimated Blood Loss (ml): 0 Pathology: none sent Condition: stable Disposition: PACU Indications for Procedure: 64-year-old patient seen with persistent left knee adhesions with history of previous total knee arthroplasty. After discussing options regarding treatment, she elected to proceed with manipulation under anesthesia. Operative Findings: See description of procedure Description of Procedure: Patient was taken to a monitored anesthesia area. She received IV sedation by the department of anesthesia. Once sufficient anesthesia was noted I performed a manipulation of the left knee achieving full extension and 145 degrees of flexion with audible tearing of the adhesions. The patient was then awakened having tolerated procedure well. The patient is scheduled for outpatient physical therapy.
[2025-02-14 13:23] VITALS: BP 137/62
[2025-02-14 13:46] VITALS: PULSE 98
== END 2025-02-14 13:57 | disposition home or self-care (01) ==
LOC: OR 10:41
PROVIDERS: ATTEND Orthopaedic Surgery
DX: M24.669 Ankylosis, unspecified knee (principal); E03.9 Hypothyroidism, unspecified; F17.210 Nicotine dependence, cigarettes, uncomplicated; Z96.652 Presence of left artificial knee joint
CPT/HCPCS: 27570; J1100; J2405; J2003; J1885; J2704